=== PATIENT | female | born 1995 | race Caucasian/White ===

== ENCOUNTER 2018-08-17 01:07 | Emergency (ER) | payer OTHER ==
[2018-08-17] MEDS ORDERED: SODIUM CHLORIDE 0.9% 1,000 ML IV STA (01:11)
[2018-08-17] MEDS ORDERED: fentaNYL (PF) 50 MCG/ML 2 ML AMP IVP STA (01:11)
[2018-08-17 01:13] VITALS: TEMP 98.9
--- NOTE | 2018-08-17 01:15 | ED ---
General Adult HPI - General Stated complaint: 6 weeks preg, abd pain Time Seen by Provider: 08/17/18 01:10 Source: patient, EMS Mode of arrival: EMS Limitations: no limitations - History of Present Illness Initial comments: Natty is a female approximately 6wks who presents to the ER via EMS for evaluation of sudden onset of severe lower abdominal pain. Patient reports that she woke from sleep with severe pain in her lower abdomen, she felt as though she was going to pass out and she called EMS for transport to the hospital. Upon their arrival they noted the patient was tachycardic and hypotensive transported the ER priority 1. The patient states that she was seen and evaluated and outside emergency department last week at which time she was diagnosed with an ovarian cyst which had caused her a mild amount of pain however this pain is significantly worse than that. - Related Data Allergies Allergy/AdvReac Type Severity Reaction Status Date / Time No Known Allergies Allergy Verified 08/17/18 01:23 Review of Systems ROS Statement: Those systems with pertinent positive or pertinent negative responses have been documented in the HPI. ROS Other: All systems not noted in ROS Statement are negative. General Exam - General Exam Comments Initial Comments: Physical Exam GENERAL: Acutely distressed HENT: Normocephalic, Atraumatic. EYES: PERRL, EOMI PULMONARY: Tachypnea CARDIOVASCULAR: Tachycardia, warm and well perfused extremities ABDOMEN: Soft Tender to palpation of lower abdomen Bedside US with no free fluid gestational sac present in uterus SKIN: Pale, diaphoretic : Deferred NEUROLOGIC: Patient is alert and oriented x3. Moving all extremities spontaneously MUSCULOSKELETAL: Normal extremities with adequate strength and full range of motion. No lower extremity swelling or edema. No calf tenderness. PSYCHIATRIC: Appropriate situational anxiety Limitations: no limitations Limitations: no limitations Course Vital Signs 08/17/18 08/17/18 01:09 02:01 Temperature 98.9 F Pulse Rate 125 H 96 Respiratory 22 20 Rate Blood Pressure 90/71 129/85 O2 Sat by Pulse 100 Oximetry EKG Findings - EKG Comments: EKG Findings:: EKG was obtained at 1:13 AM, rate is 110 rhythm is sinus tachycar julianne there is normal axis there are normal intervals, SD 132, QRS 92, QTc is 457. There are no acute ST elevations or depressions or evidence of acute ischemia or infarction or significant movement artifact especially in leads V1. Medical Decision Making - Medical Decision Making Cathy was seen and evaluated history was obtained from the patient and EMS Patient is a currently approximately 6 weeks with a single intrauterine identified on ultrasound an outside facility. Patient also noted to have pain due to ovarian cysts for which she was evaluated and outside emergency department last week. Patient presented and acute abdominal pain worse in the left lower abdomen. Patient is noted to be tachycardic and hypotensive. Bedside ultrasound revealed no free fluid in the abdomen, visible intrauterine gestational sac Labs and imaging were ordered Patient care was discussed with OB on-call Dr. Singer who agrees with workup as ordered Received IV fluids and fentanyl. She tolerated her ultrasound well. Upon reevaluation her tachycardia has resolved she is much more comfortable complaining only of mild discomfort in the lower abdomen. Ultrasound does reveal a single intrauterine gestation with possible subchorionic hemorrhage as well as a right-sided ovarian cyst 2.4 cm is good blood flow to the bilateral ovaries. These results were discussed with patient who expresses relief. Patient's beta hCG today was noted to be 8700 patient does not recall what her previous beta hCG was. Time patient's feeling much better and is comfortable with the plan for discharge home. Patient is scheduled to see her OB in [facility] on Monday of next week. All questions pertaining care were answered return parameters were discussed advised patient that she can only take Tylenol for pain, avoid Motrin in early . Patient expressed understanding of this. At this point patient feels she be able to go home without taking even Tylenol she doesn't want to take any medications during . Patient's discharge home in stable condition - Lab Data Result diagrams: 08/17/18 01:15 08/17/18 01:15 Lab Results 08/17/18 08/17/18 08/17/18 Range/Units 01:15 01:15 01:15 WBC 9.1 (3.8-10.6) k/uL RBC 4.67 (3.80-5.40) m/uL Hgb 13.8 (11.4-16.0) gm/dL Hct 39.5 (34.0-46.0) % MCV 84.5 (80.0-100.0) fL MCH 29.6 (25.0-35.0) pg MCHC 35.0 (31.0-37.0) g/dL RDW 13.2 (11.5-15.5) % Plt Count 159 (150-450) k/uL Neutrophils % 54 % Lymphocytes % 38 % Monocytes % 4 % Eosinophils % 2 % Basophils % 0 % Neutrophils # 4.9 (1.3-7.7) k/uL Lymphocytes # 3.5 (1.0-4.8) k/uL Monocytes # 0.4 (0-1.0) k/uL Eosinophils # 0.2 (0-0.7) k/uL Basophils # 0.0 (0-0.2) k/uL PT (9.0-12.0) sec INR (<1.2) APTT (22.0-30.0) sec Sodium 137 (137-145) mmol/L Potassium 3.6 (3.5-5.1) mmol/L Chloride 105 (98-107) mmol/L Carbon Dioxide 23 (22-30) mmol/L Anion Gap 9 mmol/L BUN 8 (7-17) mg/dL Creatinine 0.43 L (0.52-1.04) mg/dL Est GFR (CKD-EPI)AfAm >90 (>60 ml/min/1.73 sqM) Est GFR (CKD-EPI)NonAf >90 (>60 ml/min/1.73 sqM) Glucose 106 H (74-99) mg/dL Plasma Lactic Acid Hipolito 1.8 (0.7-2.0) mmol/L Calcium 9.4 (8.4-10.2) mg/dL Total Bilirubin 0.5 (0.2-1.3) mg/dL AST 16 (14-36) U/L ALT 29 (9-52) U/L Alkaline Phosphatase 56 (38-126) U/L Total Protein 7.1 (6.3-8.2) g/dL Albumin 4.1 (3.5-5.0) g/dL HCG, Quant 8783.1 mIU/mL Blood Type Blood Type Recheck Antibody Screen Spec Expiration Date 08/17/18 08/17/18 Range/Units 01:15 01:15 WBC (3.8-10.6) k/uL RBC (3.80-5.40) m/uL Hgb (11.4-16.0) gm/dL Hct (34.0-46.0) % MCV (80.0-100.0) fL MCH (25.0-35.0) pg MCHC (31.0-37.0) g/dL RDW (11.5-15.5) % Plt Count (150-450) k/uL Neutrophils % % Lymphocytes % % Monocytes % % Eosinophils % % Basophils % % Neutrophils # (1.3-7.7) k/uL Lymphocytes # (1.0-4.8) k/uL Monocytes # (0-1.0) k/uL Eosinophils # (0-0.7) k/uL Basophils # (0-0.2) k/uL PT 10.8 (9.0-12.0) sec INR 1.0 (<1.2) APTT 23.8 (22.0-30.0) sec Sodium (137-145) mmol/L Potassium (3.5-5.1) mmol/L Chloride (98-107) mmol/L Carbon Dioxide (22-30) mmol/L Anion Gap mmol/L BUN (7-17) mg/dL Creatinine (0.52-1.04) mg/dL Est GFR (CKD-EPI)AfAm (>60 ml/min/1.73 sqM) Est GFR (CKD-EPI)NonAf (>60 ml/min/1.73 sqM) Glucose (74-99) mg/dL Plasma Lactic Acid Hipolito (0.7-2.0) mmol/L Calcium (8.4-10.2) mg/dL Total Bilirubin (0.2-1.3) mg/dL AST (14-36) U/L ALT (9-52) U/L Alkaline Phosphatase (38-126) U/L Total Protein (6.3-8.2) g/dL Albumin (3.5-5.0) g/dL HCG, Quant mIU/mL Blood Type A Positive Blood Type Recheck CABO Indicated Antibody Screen NEGATIVE Spec Expiration Date 08/20/2018 - 2314 Disposition Clinical Impression: Ovarian cyst affecting in first trimester, antepartum Disposition: HOME SELF-CARE Condition: Stable Instructions (If sedation given, give patient instructions): Ovarian Cyst (ED) Is patient prescribed a controlled substance at d/c from ED?: No Referrals: Nonstaff,Physician [Primary Care Provider] - 1-2 days
[2018-08-17 01:33] LABS: Basophils % (A) 0 %; Eosinophils # (A) 0.2 k/uL (0-0.7); Eosinophils % (A) 2 %; HCT 39.5 % (34.0-46.0); HGB 13.8 gm/dL (11.4-16.0); Lymphocytes # (A) 3.5 k/uL (1.0-4.8); Lymphocytes % (A) 38 %; MCH 29.6 pg (25.0-35.0); MCV 84.5 fL (80.0-100.0); Mean Platelet Volume 10.1; Monocytes # (A) 0.4 k/uL (0-1.0); Monocytes % (A) 4 %; Neutrophils # (A) 4.9 k/uL (1.3-7.7); Neutrophils % (A) 54 %; Platelet Count 159 k/uL (150-450); RBC 4.67 m/uL (3.80-5.40); RDW 13.2 % (11.5-15.5); WBC 9.1 k/uL (3.8-10.6)
[2018-08-17 01:42] LABS: ALT 29 U/L (9-52); AST 16 U/L (14-36); Albumin 4.1 g/dL (3.5-5.0); Alkaline Phosphatase 56 U/L (38-126); Anion Gap 9 mmol/L; Blood Urea Nitrogen 8 mg/dL (7-17); Calcium 9.4 mg/dL (8.4-10.2); Carbon Dioxide 23 mmol/L (22-30); Chloride 105 mmol/L (98-107); Glucose 106 mg/dL (74-99); Partial Thromboplastin Time 23.8 sec (22.0-30.0); Potassium 3.6 mmol/L (3.5-5.1); Prothrombin Time 10.8 sec (9.0-12.0); Sodium 137 mmol/L (137-145); Total Bilirubin 0.5 mg/dL (0.2-1.3); Total Protein 7.1 g/dL (6.3-8.2)
[2018-08-17 01:58] LABS: HCG,Quantitative Serum 8783.1 mIU/mL
--- NOTE | 2018-08-17 03:22 | US ---
EXAM: US First Trimester, Transabdominal US , Transvaginal CLINICAL HISTORY: Reason: Pain TECHNIQUE: Real-time transabdominal and transvaginal obstetrical ultrasound of the maternal pelvis and a first trimester with image documentation. Transvaginal imaging was used for better evaluation of the fetus and adnexa. COMPARISON: None available FINDINGS: Gestation: Intrauterine gestational sac demonstrating small yolk sac. Mean sac diameter of 9.2 mm which is too small for ultrasound determination of gestational age. No definite pole identified at this time. Placenta/amniotic fluid: Two small subcentimeter hypoechoic collections adjacent to gestational sac measuring up to 0.6 cm suggesting small areas of haley-gestational subchorionic hemorrhage. Uterus/cervix: Uterus measures 7.6 x 6.2 x 4.0cm Ovaries: Right Ovary: 3.0 x 2.2 x 2.3cm Doppler vascular flow signal identified. 2.4 cm thick-walled mildly complex cyst within right ovary most suggestive of corpus luteum cyst. Left Ovary: 2.5 x 2.2 x 1.5cm. Doppler vascular flow signal identified. Free fluid: No pelvic free fluid. IMPRESSION: Small intrauterine gestational sac containing yolk sac with mean gestational sac diameter of 9.2 mm too small for ultrasound determination of gestational age. No definite pole identified at this time. Clinical correlation with serial beta hCG and short-term ultrasound follow-up recommended. Findings suggesting 2 small areas of haley-gestational subchorionic hemorrhage. 2.4 cm thick-walled mildly complex right ovarian cyst most suggestive of corpus luteum cyst. Ectopic considered unlikely differential possibility in view of intrauterine gestational sac. Clinical correlation and short-term ultrasound follow-up recommended. <MYCVCSECTION> Critical Value Communications 08/17/18 03:31 Verify Receipt Verified receipt with [employer]AGE Rendon, given to Dr. Ng on 08/17 03:31 (-04:00)
[2018-08-17 04:07] VITALS: BP 117/83; PULSE 86; RESP 16
== END 2018-08-17 04:11 | disposition home or self-care (01) ==
LOC: EC 01:07
DX: O34.81 Maternal care for other abnormalities of pelvic organs, first trimester (principal); N83.201 Unspecified ovarian cyst, right side; Z3A.01 Less than 8 weeks gestation of pregnancy
CPT/HCPCS: 36415; 86900; 86901; 80053; 83605; 85025; 85610; 85730; 86850; 84702; 93975; 76801; 76817; 99285; 96374; 96361 ×3; J3010